=== PATIENT | female | born 1955 | race Caucasian/White ===

== ENCOUNTER 2017-11-04 10:02 | Outpatient (CLI) | payer BC | END 2017-11-04 21:10 | disposition home or self-care (01) | LOC: SMA 10:02 | PROVIDERS: ATTEND Obstetrics & Gynecology Gynecology | DX: Z12.31 Encounter for screening mammogram for malignant neoplasm of breast (principal) | CPT/HCPCS: G0202 ==

== ENCOUNTER 2019-01-03 13:10 | Outpatient (CLI) | payer OTHER, MEDICARE | END 2019-01-03 19:16 | disposition home or self-care (01) | LOC: SMA 13:10 | PROVIDERS: ATTEND Obstetrics & Gynecology Gynecology | DX: Z12.31 Encounter for screening mammogram for malignant neoplasm of breast (principal) | CPT/HCPCS: 77067 ==

== ENCOUNTER 2020-01-10 12:58 | Outpatient (CLI) | payer OTHER, MEDICARE | END 2020-01-10 21:29 | disposition home or self-care (01) | LOC: SMA 12:58 | PROVIDERS: ATTEND Obstetrics & Gynecology Gynecology | DX: Z12.31 Encounter for screening mammogram for malignant neoplasm of breast (principal) | CPT/HCPCS: 77067 ==